=== PATIENT | female | born 1990 | race African-American/Black ===

== ENCOUNTER 2018-05-19 23:33 | Emergency (ER) | payer SELFPAY ==
[~2018-05-19] VITALS: Ht 157.5 cm; Wt 68.0 kg
--- NOTE | 2018-05-20 00:40 | NUR ---
Patient eloped from facility. ER physician notified.
--- NOTE | 2018-05-20 00:41 | NUR ---
Patient eloped shortly after when staff members asked ID. Patient came into ER requesting for cough syrup with jurgen
== END 2018-05-20 00:41 | disposition left against medical advice (07) ==
LOC: ER 23:39
DX: R05 Cough (principal); Z76.5 Malingerer [conscious simulation]
CPT/HCPCS: 99281; A4663